=== PATIENT | female | born 1955 | race Caucasian/White ===

== ENCOUNTER → 2019-10-02 | Outpatient (REF) | payer OTHER ==
[~2019-10-02] MED LIST: LISI-538 PO; OMEP40CA97 PO
== END ==
LOC: M LAB REF 16:35
PROVIDERS: ATTEND Dermatology
DX: C44.622 Squamous cell carcinoma of skin of right upper limb, including shoulder (principal); L82.1 Other seborrheic keratosis

== ENCOUNTER → 2019-11-01 | Outpatient (REF) | payer OTHER | LOC: M LAB REF 16:45 | PROVIDERS: ATTEND Dermatology | DX: D04.62 Carcinoma in situ of skin of left upper limb, including shoulder (principal) ==

== ENCOUNTER → 2021-12-22 | Outpatient (CLI) | payer OTHER ==
[~2021-12-22] MED LIST changes: -LISI-538 PO; +LISI20TA33 PO; +OMEP40CA4 PO; -OMEP40CA97 PO
== END ==
LOC: M RAD 15:39
PROVIDERS: ATTEND Nurse Practitioner Family
DX: E04.2 Nontoxic multinodular goiter (principal)

== ENCOUNTER → 2022-12-16 | Outpatient (CLI) | payer MEDICARE | LOC: M RAD 13:47 | PROVIDERS: ATTEND Nurse Practitioner Family | DX: E04.2 Nontoxic multinodular goiter (principal) ==

== ENCOUNTER → 2024-07-31 | Outpatient (REF) | payer BC, MEDICARE, OTHER ==
[2024-07-31 17:56] LABS: APPEARANCE, URINE CLOUDY (CLEAR); BACTERIA, URINE AUTO 1+ (NEGATIVE); BILIRUBIN, URINE AUTO NEGATIVE (NEGATIVE); BLOOD, URINE BLOOD NEGATIVE (NEGATIVE); COLOR, URINE AMBER (YELLOW); GLUCOSE, URINE (UA) AUTO NEGATIVE (NEGATIVE); KETONE, URINE AUTO NEGATIVE (NEGATIVE); LEUKOCYTE ESTERASE, URINE AUTO 2+ (NEGATIVE); MUCUS, URINE SMALL (NEGATIVE); NITRITE, URINE AUTO POSITIVE (NEGATIVE); PROTEIN, URINE AUTO 1+ mg/dL (NEGATIVE); RBC, URINE AUTO 0 /HPF (0-3); SPECIFIC GRAVITY URINE AUTO 1.026 (1.002-1.035); SQUAMOUS EPITHELIAL CELL UR AU 2 /HPF (0-6); WBC, URINE AUTO 48 /HPF (0-3)
== END ==
LOC: M SMT 17:04
PROVIDERS: ATTEND Nurse Practitioner Family
DX: R30.0 Dysuria (principal)

== ENCOUNTER → 2024-08-31 | Outpatient (REF) | payer OTHER ==
[2024-08-31 14:31] LABS: BASO # 0.1 10^3/uL (0.0-0.2); BASO % 0.5 % (0.0-1.0); EOS # 0.5 10^3/uL (0.0-0.5); EOS % 4.8 % (0.0-3.0); HEMATOCRIT 43.2 % (42.0-52.0); HEMOGLOBIN 13.6 g/dl (13.5-17.5); LYMPH # 1.3 10^3/uL (1.5-5.0); LYMPH % 11.6 % (24.0-44.0); MEAN CORPUSCULAR HEMOGLOBIN 29.9 pg (27.0-33.0); MEAN CORPUSCULAR HGB CONC 31.5 g/dl (32.0-36.5); MEAN CORPUSCULAR VOLUME 94.9 fl (80.0-96.0); MONO # 1.3 10^3/uL (0.0-0.8); MONO % 11.4 % (2.0-8.0); NEUTROPHILS # 7.8 10^3/uL (1.5-8.5); NEUTROPHILS % 71.3 % (36.0-66.0); PLATELET COUNT, AUTOMATED 213 10^3/uL (150-450); RED BLOOD COUNT 4.55 10^6/uL (4.30-6.10); WHITE BLOOD COUNT 10.9 10^3/uL (4.0-10.0)
[2024-08-31 14:39] LABS: ALBUMIN 3.3 G/DL (3.2-5.2); ALKALINE PHOSPHATASE 110 U/L (40-129); ALT/SGPT < 9 U/L (7.0-40); AST/SGOT 8 U/L (<34); BILIRUBIN,TOTAL 0.3 MG/DL (0.3-1.2); BLOOD UREA NITROGEN 11 MG/DL (9-23); CALCIUM LEVEL 8.7 MG/DL (8.3-10.6); CARBON DIOXIDE LEVEL 29 MMOL/L (20-31); CHLORIDE LEVEL 111 MMOL/L (98-107); CHOLESTEROL LEVEL 160 MG/DL (<200); CREATININE FOR GFR 0.94 MG/DL (0.70-1.30); GLOMERULAR FILTRATION RATE > 60.0 (>49); GLUCOSE, FASTING 104 MG/DL (74-106); HDL CHOLESTEROL 45.7 MG/DL (>40); LDL CHOLESTEROL 97.1 MG/DL (<100); NON-HDL-C 114.3 MG/DL; POTASSIUM SERUM 4.5 MMOL/L (3.5-5.1); SODIUM LEVEL 145 MMOL/L (136-145); TOTAL PROTEIN 6.7 G/DL (5.7-8.2); TRIGLYCERIDES LEVEL 86 MG/DL (<150)
[2024-08-31 14:42] LABS: THYROID STIMULATING HORMONE 1.565 uIU/ML (0.55-4.78)
[2024-08-31 14:43] LABS: FREE T4 1.14 NG/DL (0.89-1.76); TOTAL 25(OH) VITAMIN D 55.2 NG/ML (20.0-100.0)
[2024-08-31 14:45] LABS: FREE T3 3.7 PG/ML (2.3-4.2)
== END ==
LOC: M LABDRWAD 13:18
PROVIDERS: ATTEND Nurse Practitioner Family
DX: E55.9 Vitamin D deficiency, unspecified (principal); F41.1 Generalized anxiety disorder; K21.9 Gastro-esophageal reflux disease without esophagitis; I10 Essential (primary) hypertension; E04.2 Nontoxic multinodular goiter; R97.20 Elevated prostate specific antigen [PSA]

== ENCOUNTER → 2024-08-31 | Outpatient (REF) | payer OTHER ==
[2024-09-03 16:57] LABS: PSA FREE 0.5 ng/mL
== END ==
LOC: M LABDRWAD 13:20
PROVIDERS: ATTEND Nurse Practitioner Family
DX: R97.20 Elevated prostate specific antigen [PSA] (principal)

== ENCOUNTER 2024-09-07 09:42 | Emergency (ER) | payer MEDICARE, OTHER ==
[~2024-09-07] VITALS: Ht 177.8 cm; Wt 72.1 kg
[2024-09-07] MEDS ORDERED: MEMA10TA (10:41)
[2024-09-07] MEDS ORDERED: CIPR500T39 (10:41)
[2024-09-07 15:08] LABS: BASO # 0.1 10^3/uL (0.0-0.2); BASO % 0.6 % (0.0-1.0); EOS # 0.3 10^3/uL (0.0-0.5); EOS % 3.4 % (0.0-3.0); HEMATOCRIT 40.6 % (42.0-52.0); HEMOGLOBIN 13.1 g/dl (13.5-17.5); LYMPH # 1.7 10^3/uL (1.5-5.0); LYMPH % 17.8 % (24.0-44.0); MEAN CORPUSCULAR HEMOGLOBIN 29.9 pg (27.0-33.0); MEAN CORPUSCULAR HGB CONC 32.3 g/dl (32.0-36.5); MEAN CORPUSCULAR VOLUME 92.7 fl (80.0-96.0); MONO # 1.2 10^3/uL (0.0-0.8); MONO % 12.6 % (2.0-8.0); NEUTROPHILS # 6.4 10^3/uL (1.5-8.5); NEUTROPHILS % 65.3 % (36.0-66.0); PLATELET COUNT, AUTOMATED 294 10^3/uL (150-450); RED BLOOD COUNT 4.38 10^6/uL (4.30-6.10); WHITE BLOOD COUNT 9.8 10^3/uL (4.0-10.0)
[2024-09-07 15:28] LABS: LIPASE 22 U/L (12-53)
[2024-09-07 16:27] LABS: ALBUMIN 3.2 G/DL (3.2-5.2); ALKALINE PHOSPHATASE 94 U/L (40-129); ALT/SGPT 11 U/L (7.0-40); AST/SGOT 13 U/L (<34); BILIRUBIN,DIRECT < 0.1 MG/DL (<0.4); BILIRUBIN,TOTAL 0.2 MG/DL (0.3-1.2); BLOOD UREA NITROGEN 15 MG/DL (9-23); CALCIUM LEVEL 8.8 MG/DL (8.3-10.6); CARBON DIOXIDE LEVEL 28 MMOL/L (20-31); CHLORIDE LEVEL 107 MMOL/L (98-107); CREATININE FOR GFR 0.72 MG/DL (0.70-1.30); GLOMERULAR FILTRATION RATE > 60.0 (>49); GLUCOSE, FASTING 99 MG/DL (74-106); POTASSIUM SERUM 4.4 MMOL/L (3.5-5.1); SODIUM LEVEL 143 MMOL/L (136-145)
[2024-09-07] MEDS ORDERED: ISOVUE-370 76% 100ML VIAL As Ordered ONE (18:04)
[2024-09-07] MEDS: NS (Normal Saline) 0.9% 1,000 ML IV ONE (21:30)
[2024-09-07] MEDS ORDERED: COLA100C5 PO (22:48)
[2024-09-07 22:50] VITALS: BP 126/74; TEMP 97.7; O2SAT 100
[2024-09-07] MEDS: MAGNESIUM CITRATE 300ML BTL PO ONE (22:59)
== END 2024-09-07 23:08 | disposition home or self-care (01) ==
LOC: M ED 09:42
DX: K59.00 Constipation, unspecified (principal); I10 Essential (primary) hypertension; Z88.8 Allergy status to other drugs, medicaments and biological substances; Z79.811 Long term (current) use of aromatase inhibitors; Z79.2 Long term (current) use of antibiotics; Z79.899 Other long term (current) drug therapy
CPT/HCPCS: 74177; 80048; 80076; 83690; 85025; 96360; 96361; 99284; Q9967

== ENCOUNTER → 2024-10-05 | Outpatient (REF) | payer MEDICARE ==
[~2024-10-05] MED LIST changes: +CIPR500T39; +COLA100C5 PO; +MEMA10TA
== END ==
LOC: M SMT 12:40
PROVIDERS: ATTEND Urology
DX: R97.20 Elevated prostate specific antigen [PSA] (principal); Z79.899 Other long term (current) drug therapy; Z82.49 Family history of ischemic heart disease and other diseases of the circulatory system

== ENCOUNTER 2024-10-24 10:23 | Day surgery (SDC) | payer MEDICARE, OTHER ==
[~2024-10-24] VITALS: Ht 177.8 cm; Wt 74.6 kg
[~2024-10-24 10:23] MED LIST changes: -MEMA10TA; +MEMA10TA PO
[2024-10-24] MEDS ORDERED: propofoL 200 MG/20 ML VIAL As Ordered ONE (12:10)
[2024-10-24] MEDS ORDERED: LIDOCAINE 2% 100MG/5ML SDV (FOR ANES.) As Ordered ONE (12:13)
[2024-10-24 12:39] VITALS: TEMP 97.4
[2024-10-24 13:00] VITALS: BP 131/89; O2SAT 98
== END 2024-10-24 13:09 | disposition home or self-care (01) ==
LOC: M OPP 10:23
PROVIDERS: ATTEND Internal Medicine Gastroenterology
DX: K52.89 Other specified noninfective gastroenteritis and colitis (principal); K63.89 Other specified diseases of intestine; K64.0 First degree hemorrhoids; R19.4 Change in bowel habit; R93.3 Abnormal findings on diagnostic imaging of other parts of digestive tract; Z88.8 Allergy status to other drugs, medicaments and biological substances; Z79.899 Other long term (current) drug therapy

== ENCOUNTER → 2025-04-18 | Outpatient (REF) | payer MEDICARE, OTHER | LOC: M SFHCADAM 08:37 | PROVIDERS: ATTEND Urology | DX: R97.20 Elevated prostate specific antigen [PSA] (principal) ==

== ENCOUNTER 2025-05-16 19:16 | Emergency (ER) | payer MEDICARE, OTHER ==
[~2025-05-16] VITALS: Ht 177.8 cm; Wt 71.9 kg
[2025-05-16 19:25] VITALS: TEMP 98.2
[2025-05-16] MEDS: ACETAMINOPHEN 500 MG TAB PO ONE (20:09)
[2025-05-16 21:30] VITALS: BP 124/67; O2SAT 97
== END 2025-05-16 21:48 | disposition home or self-care (01) ==
LOC: M ED 19:16 → EDBD 19:16 → M ED 21:48
DX: S80.01XA Contusion of right knee, initial encounter (principal); S83.411A Sprain of medial collateral ligament of right knee, initial encounter; W21.01XA Struck by football, initial encounter; I10 Essential (primary) hypertension; M17.11 Unilateral primary osteoarthritis, right knee; M47.812 Spondylosis without myelopathy or radiculopathy, cervical region; Z88.8 Allergy status to other drugs, medicaments and biological substances; Y92.321 Football field as the place of occurrence of the external cause; Y93.89 Activity, other specified; Y99.9 Unspecified external cause status; Z79.899 Other long term (current) drug therapy